=== PATIENT | male | born 1985 | race Caucasian/White ===

== ENCOUNTER 2018-08-09 14:08 | Emergency (ER) | payer MEDICAID, OTHER ==
[~2018-08-09] VITALS: Ht 180.3 cm; Wt 72.9 kg
[~2018-08-09 14:08] MED LIST: FOLI0.4T2 PO; LEVE500T53 PO; OXYC1TAB8 PO; THIA100T10 PO
[2018-08-09 14:22] VITALS: BP 161/91
[2018-08-09 15:28] LABS: BASOPHILS # (AUTO) 0.04 x10^3/uL (0-0.1); BASOPHILS % (AUTO) 1 % (0-1); EOSINOPHILS # (AUTO) 0.08 x10^3/uL (0-0.4); EOSINOPHILS % (AUTO) 1 % (1-7); LYMPHOCYTES # (AUTO) 2.46 x10^3/uL (1-3.4); LYMPHOCYTES % (AUTO) 40 % (22-44); MD NO; MEAN CORPUSCULAR HEMOGLOBIN 34.4 pg (27.5-34.5); MEAN CORPUSCULAR HGB CONC 34.6 g/dL (33.2-36.2); MEAN CORPUSCULAR VOLUME 99.6 fL (81-97); MEAN PLATELET VOLUME 8.4 fL (7.4-10.4); MONOCYTES # (AUTO) 0.51 x10^3/uL (0.2-0.8); MONOCYTES % (AUTO) 8 % (2-9); NEUTROPHILS # (AUTO) 3.04 x10^3/uL (1.8-6.8); NEUTROPHILS % (AUTO) 50 % (42-75); PLATELET COUNT 263 x10^3/uL (130-400); RED BLOOD COUNT 4.78 x10^6/uL (4.38-5.82); RED CELL DISTRIBUTION WIDTH 12.9 % (9.4-14.8)
[2018-08-09 15:37] LABS: ALANINE AMINOTRANSFERASE 54 U/L (12-78); ALBUMIN 4.1 g/dL (3.4-5.0); ANION GAP 9 mmol/L (5-15); CHLORIDE 102 mmol/L (98-107); SALICYLATE LEVEL 2.7 mg/dL (2.8-20.0)
[2018-08-09 15:40] LABS: ACETAMINOPHEN < 2 mcg/mL (10-30); ALKALINE PHOSPHATASE 98 U/L (45-117); BILIRUBIN,TOTAL 0.7 mg/dL (0.2-1.0); CREATININE 0.81 mg/dL (0.7-1.3)
[2018-08-09 15:40] LABS: AMPHETAMINE SCREEN, URINE Negative (Negative); BARBITURATE SCREEN, URINE Negative (Negative); BENZODIAZEPINE SCREEN, URINE Positive (Negative); CANNABINOID SCREEN, URINE Negative (Negative); COCAINE SCREEN, URINE Negative (Negative); METHADONE SCREEN, URINE Negative (Negative); OPIATE SCREEN, URINE Negative (Negative)
== END 2018-08-09 16:37 | disposition home or self-care (01) ==
LOC: ED 16:36
DX: F10.239 Alcohol dependence with withdrawal, unspecified (principal); F10.229 Alcohol dependence with intoxication, unspecified; F17.200 Nicotine dependence, unspecified, uncomplicated; G40.909 Epilepsy, unspecified, not intractable, without status epilepticus
CPT/HCPCS: 36415; 80053; 80307; 80329; 85025; 93005; 99285; G0480

== ENCOUNTER 2019-04-11 14:24 | Inpatient (IN) | payer MEDICAID ==
[~2019-04-11] VITALS: Ht 182.9 cm; Wt 74.0 kg
--- NOTE | 2019-04-11 14:49 | NUR ---
PT STATES HE HAD A SEIZURE TODAY APPROX 10AM. PT STATES HE HAS A HX OF ETOH ABUSE WITH SEIZURES. PT STATES HE DROVE HOME FROM FRIENDS HOUSE TODAY, HE STATES HE DOESNT REMEMBER DRIVING HOME. HE STATES HE GOT OFF THE GROUND, HE THINKS HE FELL, AND GOT BACK IN HIS TRUCK. PT TO NIBP, CONT PULSE OX
--- NOTE | 2019-04-11 15:00 | NUR ---
DOA/UA COLLECTED AND WALKED TO LAB
[2019-04-11 15:25] LABS: MEAN CORPUSCULAR HEMOGLOBIN 37.2 pg (27.5-34.5); MEAN CORPUSCULAR HGB CONC 33.6 g/dL (33.2-36.2); MEAN CORPUSCULAR VOLUME 110.7 fL (81-97); MEAN PLATELET VOLUME 9.2 fL (7.4-10.4); PLATELET COUNT 166 x10^3/uL (130-400); RED BLOOD COUNT 3.95 x10^6/uL (4.38-5.82); RED CELL DISTRIBUTION WIDTH 14.2 % (9.4-14.8)
[2019-04-11 15:36] LABS: ANION GAP 8 mmol/L (5-15); CALCIUM 8.6 mg/dL (8.5-10.1); CHLORIDE 108 mmol/L (98-107); CREATININE 0.73 mg/dL (0.7-1.3)
[2019-04-11 15:38] LABS: AMPHETAMINE SCREEN, URINE Negative (Negative); BARBITURATE SCREEN, URINE Negative (Negative); BENZODIAZEPINE SCREEN, URINE Positive (Negative); CANNABINOID SCREEN, URINE Negative (Negative); COCAINE SCREEN, URINE Negative (Negative); METHADONE SCREEN, URINE Negative (Negative); OPIATE SCREEN, URINE Negative (Negative)
[2019-04-11 15:53] LABS: BASOPHILS # (AUTO) 0.03 x10^3/uL (0-0.1); BASOPHILS % (AUTO) 0 % (0-1); EOSINOPHILS # (AUTO) 0.04 x10^3/uL (0-0.4); EOSINOPHILS % (AUTO) 1 % (1-7); LYMPHOCYTES # (AUTO) 1.52 x10^3/uL (1-3.4); LYMPHOCYTES % (AUTO) 18 % (22-44); MD MORPH REVIEW ONLY; MONOCYTES # (AUTO) 0.54 x10^3/uL (0.2-0.8); MONOCYTES % (AUTO) 7 % (2-9); NEUTROPHILS # (AUTO) 6.25 x10^3/uL (1.8-6.8); NEUTROPHILS % (AUTO) 75 % (42-75)
[2019-04-11 15:54] LABS: <PLATELET ESTIMATE> ADEQUATE; <PLT MORPHOLOGY> NORMAL PLT MORPH; ANISOCYTOSIS 1+; POLYCHROMASIA 1+
--- NOTE | 2019-04-11 16:51 | NUR ---
PER MD PT APPEARED TO HAVE HAD A SEIZURE, PT DISORIENTED, COULDNT REMEMBER WHAT HAD HAPPENED, NO INCONTINENCE NOTED. PT PLACED ON SEIZURE PRECAUTIONS AND PIV ESTABLISED
--- NOTE | 2019-04-11 18:00 | NUR ---
PT RESTING ON [place], RETURNED FROM CT. NO NEEDS AT THIS TIME
--- NOTE | 2019-04-11 18:53 | NUR ---
PT RESTING ON [place] NOTED. REPORT TO NOC RN
[2019-04-11] MEDS ORDERED: LEVETIRACETAM 1,500 MG in SODIUM CHLORIDE 0.9% 100 ML IV ONE ×2 (19:00)
--- NOTE | 2019-04-11 19:07 | NUR ---
RECEIVED REPORT FROM NARDA LUNDY. PT RESTING IN BED. ORDERED KEP[facility]A INFUSING PER PUMP. SEIZURE PRECAUTIONS IN PLACE. EKG DONE. PT VSS AT THIS TIME. CALL LIGHT WITHIN REACH. NO STATED NEEDS AT THIS TIME.
[2019-04-11] MEDS ORDERED: NICOTINE 21 MG/24 HR PATCH.TD24 TD ONE (19:30)
--- NOTE | 2019-04-11 20:12 | NUR ---
REPORT TO CONNOR LUNDY FOR ROOM [id number]
[2019-04-11 20:25] VITALS: BP 121/79
[2019-04-12] MEDS ORDERED: ROPINIROLE 0.25MG TABLET PO SCH
[2019-04-12 02:19] VITALS: BP 108/67
[2019-04-12 05:38] LABS: MEAN CORPUSCULAR HEMOGLOBIN 37.6 pg (27.5-34.5); MEAN CORPUSCULAR HGB CONC 33.4 g/dL (33.2-36.2); MEAN CORPUSCULAR VOLUME 112.4 fL (81-97); MEAN PLATELET VOLUME 9.9 fL (7.4-10.4); PLATELET COUNT 169 x10^3/uL (130-400); RED BLOOD COUNT 3.71 x10^6/uL (4.38-5.82); RED CELL DISTRIBUTION WIDTH 14.2 % (9.4-14.8)
[2019-04-12 05:46] LABS: ANION GAP 9 mmol/L (5-15); CALCIUM 8.1 mg/dL (8.5-10.1); CHLORIDE 108 mmol/L (98-107)
[2019-04-12 05:48] LABS: CREATININE 0.67 mg/dL (0.7-1.3)
[2019-04-12 06:33] LABS: BASOPHILS # (AUTO) 0.02 x10^3/uL (0-0.1); BASOPHILS % (AUTO) 0 % (0-1); EOSINOPHILS # (AUTO) 0.16 x10^3/uL (0-0.4); EOSINOPHILS % (AUTO) 2 % (1-7); LYMPHOCYTES # (AUTO) 2.21 x10^3/uL (1-3.4); LYMPHOCYTES % (AUTO) 30 % (22-44); MD SCAN; MONOCYTES # (AUTO) 0.73 x10^3/uL (0.2-0.8); MONOCYTES % (AUTO) 10 % (2-9); NEUTROPHILS % (AUTO) 58 % (42-75)
[2019-04-12 07:00] VITALS: BP 121/71
[2019-04-12] MEDS ORDERED: LEVETIRACETAM 500 MG TABLET PO SCH (09:00)
[2019-04-12] MEDS ORDERED: GADOBUTROL 7.5 MMOL/7.5 ML PFS ONE (09:03)
[2019-04-12] MEDS ORDERED: THIAMINE 100MG TABLET PO SCH (09:30)
[2019-04-12] MEDS ORDERED: POTASSIUM CHLORIDE 20 MEQ TAB.ER.PRT PO ONE (09:30)
[2019-04-12 12:21] VITALS: BP 127/79
[2019-04-12] MEDS ORDERED: LEVE500T8 PO (13:02)
== END 2019-04-12 13:57 | disposition home or self-care (01) | DRG 101 ==
LOC: ED 15:58 → EDIP 18:52 → 5SO 20:19
PROVIDERS: ADMIT Internal Medicine; ATTEND Internal Medicine
DX: G40.909 Epilepsy, unspecified, not intractable, without status epilepticus (principal); F05 Delirium due to known physiological condition; E87.6 Hypokalemia; F10.21 Alcohol dependence, in remission; F17.210 Nicotine dependence, cigarettes, uncomplicated; G47.00 Insomnia, unspecified; H57.04 Mydriasis
CPT/HCPCS: 36415; 70450; 70553; 80048; 80307; 82550; 82962; 83735; 85025; 93005; 99285; A9585; G0378; J1953